=== PATIENT | female | born 1945 | race African-American/Black ===

== ENCOUNTER 2019-04-09 08:32 | Emergency (ER) | payer MEDICARE, OTHER ==
[~2019-04-09] VITALS: Ht 165.1 cm; Wt 58.0 kg
[2019-04-09 08:36] VITALS: BP 164/90
== END 2019-04-09 10:12 | disposition home or self-care (01) ==
LOC: ED 09:10
DX: H81.392 Other peripheral vertigo, left ear (principal); H81.12 Benign paroxysmal vertigo, left ear; H81.399 Other peripheral vertigo, unspecified ear; I10 Essential (primary) hypertension; E11.9 Type 2 diabetes mellitus without complications
CPT/HCPCS: 36415; 80048; 82040; 85025; 93005; 99284

== ENCOUNTER → 2020-09-12 | Outpatient (CLI) | payer MEDICARE, OTHER | END | disposition home or self-care (01) | LOC: CVU 08:34 | PROVIDERS: ATTEND Internal Medicine Cardiovascular Disease | DX: I08.8 Other rheumatic multiple valve diseases (principal); R00.2 Palpitations | CPT/HCPCS: 93306; 93356 ==